=== PATIENT | male | born 1980 | race Hispanic/Latino ===

== ENCOUNTER 2017-02-02 17:54 | Emergency (ER) | payer OTHER ==
[2017-02-02 18:05] VITALS: O2SAT 95
[2017-02-02] MEDS ORDERED: Oxycodone/Acetaminophen 5/325 mg Tab PO STA (19:47)
[2017-02-02] MEDS ORDERED: Sodium Chloride 0.9% 1,000 ML IV ONE (19:47)
[2017-02-02] MEDS ORDERED: Sodium Chloride 0.9% 1,000 ML ONE (20:04)
[2017-02-02] MEDS ORDERED: Oxycodone/Acetaminophen 5/325 mg Tab ONE (20:04)
[2017-02-02 20:18] LABS: BASO # 0.1 K/uL (0.0-0.2); BASO % 0.4 % (0.0-2.0); EOS % 0.1 % (0.0-4.0); HEMATOCRIT 44.6 % (35.0-51.0); LYMPH # 1.3 K/uL (1.0-4.3); LYMPH % 9.8 % (20.0-40.0); MEAN CELL VOLUME 86.9 fL (80.0-94.0); MEAN CORPUSCULAR HEMOGLOBIN 29.8 pg (27.0-31.0); MEAN CORPUSCULAR HGB CONC 34.3 g/dL (33.0-37.0); MEAN PLATELET VOLUME 7.2 fL (7.2-11.7); MONO % 7.9 % (0.0-10.0); PLATELET COUNT 277 K/uL (130-400); RED CELL DISTRIBUTION WIDTH 13.1 % (11.5-14.5); WHITE BLOOD COUNT 12.8 K/uL (4.8-10.8)
[2017-02-02 20:25] LABS: CHLORIDE 110 mmol/L (98-107); POTASSIUM 4.2 mmol/L (3.6-5.2); SODIUM 144 mmol/L (132-148)
[2017-02-02 20:27] LABS: ALB/GLOB RATIO 1.6 (1.0-2.1); ALKALINE PHOSPHATASE 55 U/L (38-126); AST/SGOT 35 U/L (17-59); BILIRUBIN,TOTAL 1.5 mg/dL (0.2-1.3); CARBON DIOXIDE 22 mmol/L (22-30); GFR AFRICAN-AMERICAN > 60; TOTAL PROTEIN 7.5 g/dL (6.3-8.3)
[2017-02-02 20:28] LABS: ALCOHOL SERUM < 10 mg/dl (0-10); ALT/SGPT 43 U/L (21-72); BLOOD UREA NITROGEN 17 mg/dL (9-20); CALCIUM 9.4 mg/dl (8.6-10.4); GLUCOSE,RANDOM 101 mg/dL (75-110)
[2017-02-02] MEDS ORDERED: Iohexol 300 100 ML IJ ONE (20:43)
[2017-02-02 20:46] LABS: NEUTROPHIL 84 % (50-75); TOTAL CELLS COUNTED 100
[2017-02-02 23:19] VITALS: BP 122/73; PULSE 78; RESP 18; TEMP 98.1
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
--- NOTE | 2017-02-03 07:27 | CT ---
CT left humerus History: Injury. Comparison: None available. Technique: Multiple contiguous axial images were performed through the left humerus without intravenous contrast. Subsequently, sagittal and coronal reformatted images were obtained. This CT exam was performed using one or more of the following dose reduction techniques: Automated exposure control, adjustment of the mA and/or kV according to patient size, and/or use of iterative reconstruction technique. Findings: Superior subluxation of the distal left clavicle in relationship to the acromion with approximately 1.4 centimeter superior distraction of the distal clavicle in relationship to the acromion suggestive for a prominent dislocation and disruption of the acromioclavicular joint space. Prominent soft tissue swelling. Humeral head is located and in good position at the level of the shoulder joint. At the level of the left elbow joint space, there is cortical irregularity with a curvilinear lucency seen at the level of the radial head with some minimal step-off noted at that level concerning for a radial head fracture. Associated elbow joint effusion. Intra-articular involvement. Impression: Prominent disruption and dislocation of the left acromioclavicular joint space with superior distraction of the distal clavicle in relationship to the acromion. Suggestion of a fracture deformity of the radial head with intra-articular involvement and joint effusion. Please note the fracture deformity of the radial head was not noted on the preliminary report from [facility]. These findings were preliminarily reported at 10:37 p.m. on 02/02/[address] Willie Thomason from [facility]. These findings were discussed with Physician assistant Chavez at 7:25 a.m. on 02/02/2017.
--- NOTE | 2017-02-03 07:43 | CT ---
CT chest abdomen and pelvis History: Injury. Comparison: None available. Technique: Multiple contiguous axial images were performed through the chest abdomen and pelvis without the use of intravenous contrast. Subsequently, sagittal and coronal reformatted images were obtained. This CT exam was performed using one or more of the following dose reduction techniques: Automated exposure control, adjustment of the mA and/or kV according to patient size, and/or use of iterative reconstruction technique. Findings: Please see separate report for evaluation of the left humerus with fracture deformities noted at the radial head as well as dislocation at the left acromioclavicular joint space. Chest: Mild left basilar atelectasis. Pleural spaces are clear. No pneumothorax. Heart size is within normal limits. Abdomen: Liver and gallbladder are preserved. Pancreas, spleen, and adrenal glands are preserved. Kidneys and ureters are preserved. Stomach and bowel are preserved. Appendix not definitively identified. No findings to suggest acute appendicitis. Punctate calcification within the right lower abdomen near the cecum on series 604, image 50, nonspecific. Pelvis: Visualized urinary bladder is preserved. Reproductive organs are preserved. Chest abdomen and pelvis: No significant fluid collection within the abdomen and pelvis. Left acromioclavicular joint injury. See reports of the left upper extremity. Degenerative changes of the lumbosacral spine. Hemisacralization of the left aspect of the L5 vertebral body. Suggestion of a prominent posterior disc osteophyte complex at the L4-5 level. Consider correlation with MRI if clinically indicated. No significant lymphadenopathy. Visualized vasculature is grossly preserved. Impression: Note made of left acromioclavicular joint injury. These findings were preliminarily reported at 10:44 p.m. on 02/02/[address] Willie Thomason from [facility].
--- NOTE | 2017-02-03 08:59 | RAD ---
Left shoulder three views History: Injury. Comparison: None available. Findings: Prominent acromioclavicular joint space separation with superior distraction of the distal clavicle in relationship to the acromion measuring approximately 1.2 centimeters. Glenohumeral joint space appears preserved. Impression: Prominent acromioclavicular joint space separation with superior distraction of the distal clavicle in relationship to the acromion measuring approximately 1.2 centimeters.
--- NOTE | 2017-02-03 09:00 | RAD ---
Left elbow four views History: Fracture. Comparison: None available. Findings: Cortical irregularity with curvilinear lucency seen at the radial head suggestive for fracture deformity with intra-articular extension and question minimal articular surface depression. Elbow joint effusion. Impression: Cortical irregularity with curvilinear lucency seen at the radial head suggestive for fracture deformity with intra-articular extension and question minimal articular surface depression. Elbow joint effusion.
--- NOTE | 2017-02-03 09:02 | RAD ---
Left wrist four views History: Injury. Comparison: None available. Findings: No evidence for acute displaced fracture or dislocation. Joint spaces appear preserved. Impression: Negative acute. If pain persists, consider MRI.
--- NOTE | 2017-02-05 14:25 | CARD ---
APPROVED REPORT EKG Measurement Heart [id number] <Conclusion> Normal sinus rhythm Incomplete right bundle branch block Borderline ECG
== END 2017-02-03 00:16 | disposition home or self-care (01) ==
LOC: C.ER 17:54
DX: S52.125A Nondisplaced fracture of head of left radius, initial encounter for closed fracture (principal); S43.102A Unspecified dislocation of left acromioclavicular joint, initial encounter; V29.40XA Motorcycle driver injured in collision with unspecified motor vehicles in traffic accident, initial encounter
CPT/HCPCS: 29105; 36415; 71260; 73030; 73080; 73110; 73200; 74177; 80053; 85025; 93005; 96361; 96374; 99285; G0480; J1885; J7040; Q9967